=== PATIENT | female | born 1995 | race African-American/Black ===

== ENCOUNTER 2018-11-19 16:04 | Emergency (ER) | payer MEDICAID, OTHER ==
[2018-11-19] MEDS: DIPHENHYDRAMINE 50 MG CAP PO (17:03)
[2018-11-19] MEDS: FAMOTIDINE 20 MG TAB PO (17:03)
[2018-11-19] MEDS: predniSONE 20 MG TAB PO (17:03)
== END 2018-11-19 17:41 | disposition home or self-care (01) ==
LOC: E/R 16:04 → FTE 17:41
DX: T63.441A Toxic effect of venom of bees, accidental (unintentional), initial encounter (principal)
CPT/HCPCS: 99283; J7512